=== PATIENT | female | born 1935 | race Caucasian/White ===

== ENCOUNTER 2016-11-15 20:30 | Inpatient (IN) | payer MEDICARE, BC ==
--- NOTE | 2016-11-15 20:40 | ERNOTE ---
Medical Problem HPI - General Time Seen by Provider: 11/15/16 20:32 Source: patient Exam Limitations: no limitations - Immun/Allergies/Home Medications Allergies/Adverse Reactions: Allergies No Known Allergies Allergy (Unverified 11/15/16 20:32) Home Medications: HOME MEDICATIONS Diltiazem HCl [Diltiazem 24Hr Cd] 240 mg PO DAILY 11/15/16 [Last Taken Unknown] Enalapril Maleate [Vasotec] 20 mg PO DAILY 11/15/16 [Last Taken Unknown] Hydrochlorothiazide DAILY 11/15/16 [Last Taken Unknown] - History of Present History Narrative: Patient presents to the emergency room for extreme fatigue and pallor. Patient has a history of hypertension and over the past 2 days she has felt somewhat tired today she was extremely fatigued. She had one episode of melanotic stools last week. At this time she has no melanotic stools. Review of Systems - Review of Systems Constitutional: Present: weakness, fatigue, malaise EYE: Present: no symptoms reported ENT: Present: no symptoms reported Respiratory: Present: no symptoms reported Cardiology: Present: no symptoms reported Gastrointestinal/Abdominal: Present: other - had one episode of melanotic stools approximately 2 days ago however she does not complain of any abdominal pain and rectal bleeding or any other symptoms or melanotic stools at this time Genitourinary: Present: no symptoms reported Musculoskeletal: Present: no symptoms reported Skin: Present: no symptoms reported Physical Exam - Physical Exam General Appearance: Present: lethargic, other - patient appears thin and extremely pale with conjunctival pallor and she appears lethargic and very very tired Head Exam: Present: normal inspection Ears, Nose, Throat: Present: normal ENT inspection, other - pallor of the oral mucosa is noted Neck: Present: normal inspection Respiratory: Present: no respiratory distress, normal breath sounds, no accessory muscle use, chest nontender, lungs clear Cardiovascular/Chest: Present: regular rate, rhythm, no murmur, normal peripheral pulses Gastrointestinal/Abdominal: Present: normal bowel sounds, nontender, nondistended, soft, no organomegaly Back Exam: Present: normal inspection, normal range of motion Extremity Exam: Present: normal inspection Neurological Exam: Present: alert, oriented, normal mood/affect, no motor/ sensory deficits Skin Exam: Present: normal color, warm/dry ED Progress - Results and Orders Patient's Lab Results:: I have reviewed the patient's lab results. - Vital Signs Patient's Vital Signs:: I have reviewed the patient's vital signs. Vital Signs: Vital Signs 11/15/16 20:35 Temperature 36.8 C Pulse Rate 88 Respiratory 18 Rate Blood Pressure 117/46 O2 Sat by Pulse 100 Oximetry - X-Ray X-Ray #1 X-Ray: chest Plan - Plan Plan: This patient has absolutely no pain anywhere and has no symptoms other than extreme fatigue and lethargy. In her history it is important to note that she had 2 days of melanotic stools last week. [place] patient is comfortable completely comfortable at this time. Her hemoglobin is 4.4 and she does need to be admitted to the [facility] floor for transfusion and possible scope. Dr. Quarles will be consult note in regards to this patient's admission. Departure - Departure Clinical Impression: Anemia Qualifiers: Anemia type: unspecified type Qualified Code(s): D64.9 - Anemia, unspecified Disposition: [facility] Condition: Fair
[2016-11-15 21:00] LABS: Mean Cell Volume 97.9 fl (78-100); Mean Corpuscular Hgb Conc 31.7 g/dl (32-36); Mean Platelet Volume 10.8 fl (6.0-9.5); NRBC# 0.1 k/mm3 (0-1); Neutrophil # 9.1 K/mm3 (1.3-6.0); Neutrophil % 76.2 % (42-75.0); Platelet Count 206 K/mm3 (150-450); Red Blood Count 1.42 M/mm3 (4.2-5.4); Red Cell Distribution Width 16.5 % (11.5-14.0)
[2016-11-15 21:01] LABS: Hemoglobin 4.4 gm/dL (12.5-16.0)
[2016-11-15 21:01] LABS: Albumin * 2.2 gm/dl (3.4-5.0); Anion Gap 10.5 mmol/L (6.8-13.8); BUN/Creatinine Ratio 67.2 (9.0-21.6); Bilirubin, Total 0.3 mg/dL (0.0-1.1); Ca. Corrected For Albumin 8.4 mg/dL (8.4-10.2); Calcium * 7.3 mg/dL (7.9-10.9); Carbon Dioxide 24.3 mmol/L (24-32.6); Potassium 3.8 mmol/L (3.4-4.6); Total Protein 4.2 gm/dL (6.2-8.2)
[2016-11-15 21:02] LABS: Hematocrit 13.9 % (37.0-47.0)
[2016-11-15 21:29] LABS: Urine Bilirubin Negative (NEGATIVE); Urine Blood Negative /ul (NEGATIVE); Urine Ketone 15 mg/dL (NEGATIVE); Urine Nitrite Negative (NEGATIVE); Urine Protein Negative (NEGATIVE); Urine Specific Gravity 1.025 SP.GR. (1.005-1.010); Urine Urobilinogen Normal (NORMAL)
[2016-11-15 21:34] LABS: Urine Amorphous Sediment Moderate - 2+ (NONE-FEW); Urine Appearance Clear; Urine Bacteria TRACE; Urine Color Pale Yellow; Urine Hyaline Cast 0-5 /LPF; Urine RBC None Seen /hpf (0-5); Urine WBC None Seen /hpf (0-5)
--- NOTE | 2016-11-15 22:30 | HP ---
Chief Complaint - Chief Complaint Date of Service: 11/15/16 Time of Service: 22:26 Chief Complaint: Feeling weak and tired for the last 1 week. Tarry stools a week ago History of Present Illness: 81-year-old WF with a history of HTN, severe MR [sees Dr. Libby Hinds (cardiology )] who came to the ER for evaluation of weakness and fatigue, which is gradually worsening over the last 1 week. Patient complains of "her legs giving out " while at dinner few days ago, going to bed early due to fatigue/ leg pain and blurred vision on one occasion. She takes occasional aspirin for migraine headaches up to maximum of 6 a day maybe once or twice a month which occur when she is "really stressed ". There is no H/O N,V, weight loss, change in bowel habits. No history of NSAID/EtOH ingestion. H/H was 14/42.3 on 2016. Patient has never had a screening colonoscopy. - Patient's Past Medical History Additional info: PAST MEDICAL HISTORY: Hypertension. 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 Migraines. Osteoarthritis. Patient History - Surgical Procedures: No surgical history Patient History - Other: None LMP (females 10-50): - Family History Mother Family History - Medical: - -DM, HTN Father Family History - Medical: - -MA - Social History Living Situations: spouse Abuse History: No History of abuse Psych History: No pertinent hx Smoking Status: Never smoker Have you smoked in the past 12 months: No Do you dip or chew tobacco: No Patient requests Smoking Cessation Consult: No Initiate information on Smoking Cessation: No Alcohol Use: none Drug Use: none - Immunizations Immunizations Up to Date: Yes Hx Pneumococcal Vaccination: No History of Influenza Vaccine: No Review Of Systems (GEN) - Review of Systems Generalized/Overall Review: Present: Weakness, Fatigue. Absent: Weight loss Respiratory: Absent: Cough, Shortness of Breath Cardiac: Absent: Chest Pain, Edema Abdominal: Absent: Nausea, Vomiting, Abdominal Pain, Constipation Musculoskeletal: Present: Other - pain in tail bone Neurological: Present: Headache - occassionally Allergies/Adverse Reactions: Allergies Allergy/AdvReac Type Severity Reaction Status Date / Time diazepam [From Valium] AdvReac Verified 11/15/16 22:15 Home Medications: HOME MEDICATIONS Diltiazem HCl [Diltiazem 24Hr Cd] 240 mg PO DAILY 11/15/16 [Last Taken Unknown] Enalapril Maleate [Vasotec] 40 mg PO DAILY 11/15/16 [Last Taken Unknown] Hydrochlorothiazide 12.5 mg PO DAILY 11/15/16 [Last Taken Unknown] Exam - Exam Vital Signs: Vital Signs - Last Taken Temp 36.8 C 11/15/16 22:07 Pulse 98 11/15/16 22:07 Resp 16 11/15/16 22:07 BP 102/52 11/15/16 22:07 Pulse Ox 98 11/15/16 22:07 Constitutional: Present: Elderly, Thin and frail - markedly pale in ER ENT Exam: Present: hearing grossly normal, moist mucous membranes Eye Exam: bilateral eye: PERRL, EOMI Neck: Present: normal inspection, trachea midline Respiratory: Present: lungs clear, normal breath sounds. Absent: no accessory muscle use Cardiovascular/Chest: Present: regular rate, rhythm, systolic murmur - II/ heard all at LSB and sternum. Absent: tachycardia Peripheral Pulses: carotid (R): 2+, carotid (L): 2+ Abdomen: Present: Normal bowel sounds, soft, nontender. Absent: CVA tenderness , distended /Rectal: Present: Exam deferred Extremity: Present: normal inspection. Absent: no pedal edema Skin Exam: Present: warm/dry - MARKED PALLOR PRESENT. Neurologic: Present: alert, oriented x 3 Eye contact: Present: cooperative, good eye contact, normal speech Thoughts: Present: normal thought pattern, no apparent hallucination Diagnostic Studies: Laboratory Tests 05/25/16 11/15/16 11:08 20:56 WBC 8.5 12.0 H Hgb 14.0 4.4 L* D Hct 42.3 13.9 L* D Plt Count 280 206 11/15/16 20:52 Plasma Sodium 141 Potassium 3.8 Chloride 109 H Carbon Dioxide 24.3 BUN 39 H D Creatinine 0.58 Est GFR (Non-Af Amer) 106 Random Glucose 171 H Calcium Adj for Albumin 8.4 Total Bilirubin 0.3 AST 13 ALT 16 L Alkaline Phosphatase 59 Total Protein 4.2 L Albumin 2.2 L 11/16/16 08:50 Stool Occult Blood Negative CXR : 11/15/16: 1. No acute cardiopulmonary processes identified. 2. DJD of the spine and shoulders noted. EK11/15/16: NSR w/o acute changes. Assessment/Plan - Narrative Narrative: 1. Anemia: Patient's H&H dropped from 14.0/42.3[05/25/16] to 4.4/13.9[11/15/16]. Patient will be transfused with 3 units PRBC initially and H&H will be checked 2 hours later. Patient will be transfused as deemed necessary. Pantoprazole 40 mg IV 1 given in the ER as she takes aspirin as needed for migraine headaches. 2. GI loss: This could be from upper/lower GI. Patient has a history of aspirin ingestion or it could be from diverticular bleeding/ mass etc. She has not had prior colonoscopy. Will discuss with Dr. Lara. Patient currently on clear liquids for the same. 3. Hypertension: Chronic and stable. On enalapril 40 mg daily, diltiazem 240 mg daily, HCTZ 12.5 mg daily. 4. Other chronic conditions: Migraine headaches and osteoarthritis which are currently stable. 5. DVT prophylaxis: Enoxaparin contraindicated due to anemia; continue JAMES madison. CODE STATUS code: Full code. 6. Patient is at low risk for complications for undergoing EGD and colonoscopy once her hemoglobin is stable.
[2016-11-15] MEDS ORDERED: PANTOPRAZOLE SODIUM 40 MG in NORMAL SALINE 100 ML IV ONE (22:35)
[2016-11-16] MEDS ORDERED: ACETAMINOPHEN 325 MG TABLET PO PRN ×2 (03:33→12:47)
[2016-11-16] MEDS ORDERED: ENALAPRIL MALEATE 5 MG TABLET PO SCH (09:00)
--- NOTE | 2016-11-16 12:46 | PN ---
Subjective - Date and Time Seen Date: 11/16/16 Time: 12:45 Subjective Narrative: feels better, weakness have has improved. Objective - Review of Systems Generalized/Overall Review: Reports: Weakness Cardiac: Denies: Chest Pain, Edema Abdominal: Denies: Nausea, Vomiting - Vitals Vitals: Last Vital Signs Temp 37.1 C 11/16/16 12:35 Pulse 110 H 11/16/16 12:35 Resp 16 11/16/16 12:35 BP 164/81 11/16/16 12:35 Pulse Ox 100 11/16/16 12:35 - Abnormal Lab Findings Abnormal Lab Findings: Laboratory Tests 11/16/16 14:35 WBC 10.6 H Hgb 9.0 L Hct 27.2 L Plt Count 187 - Exam Constitutional: Present: Elderly, Thin and frail - alert and orientedx 3 ENT Exam: Present: hearing grossly normal, moist mucous membranes Neck: Present: normal inspection, trachea midline Respiratory: Present: lungs clear, normal breath sounds Cardiovascular/Chest: Present: regular rate, rhythm, systolic murmur - II/ at LSB and sternum Abdomen: Present: Normal bowel sounds, soft, nontender Skin Exam: Present: warm/dry, pallor Eye contact: Present: cooperative, good eye contact, normal speech Assessment/Plan Plan Narrative: 1. Anemia: Patient's H&H 4.4/13.9[11/15/16] increased to 9.0/27.2 after transfusion. Patient feels better continue to watch. She is heme positive. No history of weight loss. 2. GI loss: This could be from upper/lower GI. Patient has a history of aspirin ingestion or it could be from diverticular bleeding/ mass etc. She has not had prior colonoscopy. Will discussed with Dr. Lara. Discussed with patient she would like to proceed with colonoscopy. 3. Hypertension: Chronic and stable. On enalapril 40 mg daily, diltiazem 240 mg daily, HCTZ 12.5 mg daily. 4. Other chronic conditions: Migraine headaches and osteoarthritis which are currently stable. 5. DVT prophylaxis: Enoxaparin contraindicated due to anemia; continue JAMES madison. CODE STATUS code: Full code. 6. Patient is at low risk for complications for undergoing EGD and colonoscopy once her hemoglobin is stable.
[2016-11-16] MEDS: ENALAPRIL MALEATE 20 MG TABLET PO SCH (13:12)
[2016-11-16 14:53] LABS: Hematocrit 27.2 % (37.0-47.0); Mean Corpuscular Hemoglobin 29.1 pg (27-31); Mean Corpuscular Hgb Conc 33.1 g/dl (32-36); Mean Platelet Volume 10.3 fl (6.0-9.5); NRBC# 0.1 k/mm3 (0-1); Neutrophil # 6.4 K/mm3 (1.3-6.0); Neutrophil % 60.3 % (42-75.0); Platelet Count 187 K/mm3 (150-450); Red Blood Count 3.09 M/mm3 (4.2-5.4); Red Cell Distribution Width 16.3 % (11.5-14.0); White Blood Count 10.6 K/mm3 (4.0-10.5)
[2016-11-16] MEDS ORDERED: SODIUM, POTASSIUM,MAG SULFATES 1 KIT KIT PO ONE (16:32)
--- NOTE | 2016-11-17 05:24 | PN ---
Subjective - Date and Time Seen Date: 11/17/16 Time: 04:53 Subjective Narrative: doing well. states she has been up frequently since starting the surprep yesterday. denies needs. Objective - Review of Systems Generalized/Overall Review: Reports: Fatigue EENTM: Reports: No Symptoms Reported Respiratory: Reports: No Symptoms Reported Cardiac: Reports: No Symptoms Reported Abdominal: Reports: No Symptoms Reported Genitourinary Symptoms: Reports: No Symptoms Reported Musculoskeletal Complaints: Reports: No Symptoms Reported Neurological: Reports: No Symptoms Reported Skin: Reports: No Symptoms Reported Endocrine: Reports: No Symptoms Reported Misc: All systems neg except as marked - Vitals Vitals: Last Vital Signs Temp 37.0 C 11/17/16 02:05 Pulse 99 11/17/16 02:05 Resp 17 11/17/16 02:05 BP 171/80 11/17/16 02:05 Pulse Ox 96 11/17/16 02:05 - Abnormal Lab Findings Abnormal Lab Findings: Abnormal Lab Results 11/16/16 11/16/16 Range/Units 14:35 19:35 WBC 10.6 H (4.0-10.5) K/mm3 RBC 3.09 L (4.2-5.4) M/mm3 Hgb 9.0 L (12.5-16.0) gm/dL Hct 27.2 L (37.0-47.0) % RDW 16.3 H (11.5-14.0) % MPV 10.3 H (6.0-9.5) fl Immature Gran % (Auto) 1.60 H (0.001-0.429) % Immature Gran # (Auto) 0.17 H (0.000-0.0310) K/mm3 Monocytes % 12.4 H (0.0-9) % Neutrophils # 6.4 H (1.3-6.0) K/mm3 Monocytes # 1.3 H (0.0-1.0) k/mm3 Stool Occult Blood Positive H - Exam Constitutional: Present: Alert, Cooperative, No distress, Elderly ENT Exam: Present: hearing grossly normal Neck: Present: full range of motion, supple Respiratory: Present: normal breath sounds, no respiratory distress, no accessory muscle use Cardiovascular/Chest: Present: normal peripheral pulses, regular rate, rhythm, systolic murmur - 2-3/6 Abdomen: Present: soft, nontender, nondistended /Rectal: Present: Exam deferred Extremity: Present: non-tender, no calf tenderness Skin Exam: Present: warm/dry, no cyanosis, pallor Assessment/Plan Plan Narrative: Anemia - Admit Hgb 4.4 - s/p 3 units PRBCs - post transfusion H/H 9.0/27.2 - am labs pending GI Bleed - s/p 3 units PRBCs - am labs pending - scheduled for EGD and colonscopy with Dr. Lara today - appreciate his help. - Start D5LR IVF this am since NPO for procedure - am labs pending: will add K+ if dictated by am labs - ? add on IV protonix BID ? HTN - currently on enalapril 40 mg daily, cardizem 240 mg daily and HCTZ 12.5 mg daily. Code status: Full Code VTE: no lovenox due to GI bleed; taj madison GI proph: ? add protonix IV BID? - Problems/Diagnosis (1) Anemia Problem: Acute Qualifiers: Anemia type: unspecified type Qualified Code(s): D64.9 - Anemia, unspecified (2) GI bleed Problem: Acute Qualifiers: GI bleed type/associated pathology: unspecified gastrointestinal hemorrhage type Qualified Code(s): K92.2 - Gastrointestinal hemorrhage, unspecified (3) HTN (hypertension) Problem: Chronic Qualifiers: Hypertension type: essential hypertension Qualified Code(s): I10 - Essential (primary) hypertension
[2016-11-17 05:46] LABS: Hematocrit 26.4 % (37.0-47.0); Hemoglobin 8.6 gm/dL (12.5-16.0); Mean Cell Volume 88.9 fl (78-100); Mean Corpuscular Hgb Conc 32.6 g/dl (32-36); Mean Platelet Volume 11.1 fl (6.0-9.5); Neutrophil # 4.6 K/mm3 (1.3-6.0); Platelet Count 185 K/mm3 (150-450); Red Blood Count 2.97 M/mm3 (4.2-5.4); White Blood Count 8.7 K/mm3 (4.0-10.5)
[2016-11-17] MEDS ORDERED: DEXTROSE 5%-LACTATED RINGERS 1,000 ML IV PRN (06:00)
[2016-11-17 06:05] LABS: Albumin * 2.5 gm/dl (3.4-5.0); Anion Gap 9.8 mmol/L (6.8-13.8); BUN/Creatinine Ratio 27.5 (9.0-21.6); Bilirubin, Total 0.7 mg/dL (0.0-1.1); Ca. Corrected For Albumin 8.3 mg/dL (8.4-10.2); Calcium * 7.4 mg/dL (7.9-10.9); Carbon Dioxide 26.4 mmol/L (24-32.6); Potassium 3.2 mmol/L (3.4-4.6); Total Protein 4.6 gm/dL (6.2-8.2)
[2016-11-17] MEDS ORDERED: POTASSIUM CHLORIDE 40 MEQ in DEXTROSE 5%-LACTATED RINGERS 1,000 ML IV SCH (07:00)
[2016-11-17] MEDS: ENALAPRIL MALEATE 20 MG TABLET PO SCH (09:25)
[2016-11-17] MEDS ORDERED: POTASSIUM CHLORIDE 20 MEQ TABLET.SA PO PRN (12:00)
[2016-11-17] MEDS ORDERED: POTASSIUM CHLORIDE 40 MEQ in DEXTROSE 5%-LACTATED RINGERS 1,000 ML IV ONE (12:55)
[2016-11-17 14:47] VITALS: BP 139/78
--- NOTE | 2016-11-17 15:13 | DS ---
(1) Anemia Diagnosis(s): due to chaudhry diverticulitis. Problem: Acute Qualifiers: Anemia type: iron deficiency Iron deficiency anemia type: chronic blood loss Qualified Code(s): D50.0 - Iron deficiency anemia secondary to blood loss (chronic) (2) GI bleed Problem: Acute Qualifiers: GI bleed type/associated pathology: diverticulosis Qualified Code(s): K57.91 - Diverticulosis of intestine, part unspecified, without perforation or abscess with bleeding (3) HTN (hypertension) Diagnosis(s): With severe nonvalvular MR. Problem: Chronic Qualifiers: Hypertension type: essential hypertension Qualified Code(s): I10 - Essential (primary) hypertension Description of Stay: DATE OF ADMISSION: 11/15/16. DATE OF DISCHARGE: 11/17/16. DIAGNOSTICS: NONE. DISCHARGE SUMMARY: Kamilah Simpson is a 81-year-old WF with a history of HTN with severe MR [ nonvalvular] and migraines who came into the ER for the evaluation of weakness, fatigue and black tarry stools of one week duration. H&H dropped from 14.0/42.3 [05/25/16] to 4.4/13.9[11/15/2016]. Patient was transfused with 3 units PRBC. H /H was 9.0/27.2 on 11/16/2016. Patient desired to undergo EGD/ colonoscopy. She underwent the above studies on 11/17/2016 which showed the EGD to be normal and having severe pancolonic diverticulosis w/o active bleeding. Her diet was advanced and she was discharged in a stable condition. Her H&H at time of discharge was 8.6/26.4. She was advised to undergo a CT of abdomen/pelvis with contrast as an outpatient in a couple of weeks and follow-up with PCP. Her condition at the time of discharge was stable. More than 35 minutes was spent in discussing plan of care, test results, reconciliation of medications, preparing and dictating discharge summary. Procedures Performed: see notes below - EGD and colonoscopy [11/17/2016] Results and Findings: Laboratory Tests 05/25/16 11/15/16 11/17/16 11:08 20:56 05:34 WBC 8.5 12.0 H 8.7 Hgb 14.0 4.4 L* D 8.6 L Hct 42.3 13.9 L* D 26.4 L Plt Count 280 206 185 11/15/16 11/17/16 20:52 05:34 Plasma Sodium 141 143 H Potassium 3.8 3.2 L Chloride 109 H 110 H Carbon Dioxide 24.3 26.4 BUN 39 H D 14 D Creatinine 0.58 0.51 Est GFR (Non-Af Amer) 106 123 Random Glucose 88 D Calcium Adj for Albumin 8.4 8.3 L Total Bilirubin 0.3 0.7 AST 13 16 ALT 16 L 19 Alkaline Phosphatase 59 67 Total Protein 4.2 L 4.6 L Albumin 2.2 L 2.5 L 11/16/16 19:35 Stool Occult Blood Positive H Discharge Disposition: Home self care Disposition: Home self-care Condition: Undetermined Discharge Diet: Low fat/chol, High Fiber Consultation Done:: Dr. Marco FERRELL Problem Oriented Discharge Instructions to Patient/Family: High-Fiber Diet, Low -Fiber Diet Additional Patient Instructions (free text): High fiber diet. Hand out on high/low fiber diet. follow up with PCP after CT is done. 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 Follow up with Dr. Quarles on 12-24-16 @ 9:30am. Prescriptions (Any new or edited meds): Cholecalciferol (Vitamin D3) [Vitamin D3] 2,000 unit PO DAILY #100 Diltiazem HCl [Diltiazem 24Hr Cd] 240 mg PO DAILY@2100 #.1 cap.er.24h Enalapril Maleate [Vasotec] 40 mg PO DAILY@0800 #.1 tablet Hydrochlorothiazide [Microzide] 12.5 mg PO DAILY@0800 #.1 capsule Complete Home Medications List: Complete Home Medication List: Cholecalciferol (Vitamin D3) [Vitamin D3] 2,000 unit PO DAILY #100 11/17/16 Diltiazem HCl [Diltiazem 24Hr Cd] 240 mg PO DAILY@2100 #.1 cap.er.24h 11/17/16 Enalapril Maleate [Vasotec] 40 mg PO DAILY@0800 #.1 tablet 11/17/16 Hydrochlorothiazide [Microzide] 12.5 mg PO DAILY@0800 #.1 capsule 11/17/16 Amb Orders for Discharge: CT Abdomen/Pelvis W/C * Time Frame: 2 Weeks, Location: Determined By Patient
--- NOTE | 2016-11-17 17:59 | OR ---
Operative Report - Dictated Report Narrative: Operative Report Date of operation: 11/17/2016 Preoperative diagnosis: Anemia Postoperative diagnosis: Normal EGD. Severe diverticulosis. No active bleeding sites identified Operation: EGD with biopsy. Colonoscopy Surgeon: Dr Lara Anesthesia: ALIZE ALVAREZ CRNA Indications for procedure: The patient is an 81-year-old female admitted by Dr. Quarles. The patient presented with fatigue and was found to have profound anemia of 4 g. Her hemoglobin has responded to transfusion. She is brought for upper and lower endoscopy Findings: Normal EGD. Severe chaudhry colonic diverticulosis. No active bleeding site identified Narrative of procedure: The patient was identified preoperatively, and prior to the administration of anesthetic a multidisciplinary timeout was observed EGD: With the patient in the recumbent position, a bite-block was placed, intravenous sedation was administered, and the patient's eyes covered with a towel. The flexible fiberoptic gastroscope was advanced into the posterior pharynx which appeared normal. The supraglottic larynx appeared normal. The cords appeared normal, moved well, and opposed in the midline. The scope was advanced under direct vision into the proximal esophagus which appeared normal. The esophagus appeared freely distensible with normal mucosa. The esophageal mucosa appeared normal down to the gastroesophageal junction which was sharp and noninflamed. The GE junction appeared normally distensible. The scope was advanced into the stomach which was insufflated with air. The stomach was grossly normal in appearance with no ulcers or neoplastic lesions including a retroflexed view of the gastric fundus. The scope was redirected toward the pylorus. The pylorus appeared patent. The gastric anatomy was such that the scope could not be advanced through the pylorus although the duodenal bulb was visualized through the pylorus and appeared grossly normal. [employer] biopsies of gastric mucosa were obtained for CLOtest and pathology. The biopsy sites were seen to be hemostatic. The insufflated air was removed, the scope withdrawn from the patient, and this portion of the procedure terminated. COLONOSCOPY: The patient was then placed in the left lateral position, and the perineum was inspected. There was no evidence of pilonidal disease or skin breakdown. The external appearance of the anus was normal with exception of a pedunculated fibrosed hemorrhoid. Sphincter tone was good. The flexible fiberoptic colonoscope was inserted into the rectum which was insufflated with air. The rectal mucosa and submucosal vascular pattern appeared normal, the prep was seen to be complete. The scope was advanced through the sigmoid colon, which contained innumerable large non-impacted noninflamed diverticular openings. The scope was advanced up the descending colon, and around the splenic flexure where the triangular haustral architecture of the transverse colon was seen. The scope was advanced across the transverse colon, around the hepatic flexure to the cecum, where the confluence of tenia and the ileocecal valve were identified. The mucosa at this level appeared normal. The scope was then slowly withdrawn in a circular fashion so that all aspects of colonic mucosa were inspected. The colon was relatively normal in course and caliber. The haustral architecture appeared well preserved throughout with no evidence of external compression. The mucosa and submucosal vascular pattern appeared normal, specifically there was no gross evidence to suggest colitis or inflammatory bowel disease and no AV malformations were seen. There was severe chaudhry colonic diverticulosis. No polyps were encountered. The scope was gradually withdrawn to the level of the rectum. As much insufflated air as possible was removed. The scope was withdrawn from the patient and the procedure terminated. The patient tolerated the anesthetic and procedure well without complication and was transferred back to her room awake and in stable condition. Reviewed and electronically signed
[2016-11-17] MEDS ORDERED: POTASSIUM CHLORIDE 20 MEQ in DEXTROSE 5%-LACTATED RINGERS 1,000 ML IV SCH (21:00)
== END 2016-11-17 16:50 | disposition home or self-care (01) | DRG 379 ==
LOC: ER 20:30 → MS 21:04 → OBSVTOIN 21:04
PROVIDERS: ADMIT Internal Medicine; ATTEND Internal Medicine
PROC: 30263N1 (ICD-10-PCS; 2016-11-16)
PROC: 0DJD8ZZ Inspection of Lower Intestinal Tract, Via Natural or Artificial Opening Endoscopic (ICD-10-PCS; principal; 2016-11-17 12:45)
PROC: 0DB78ZX Excision of Stomach, Pylorus, Via Natural or Artificial Opening Endoscopic, Diagnostic (ICD-10-PCS; 2016-11-17 12:45)
DX: K57.91 Diverticulosis of intestine, part unspecified, without perforation or abscess with bleeding (principal); D50.0 Iron deficiency anemia secondary to blood loss (chronic); K57.30 Diverticulosis of large intestine without perforation or abscess without bleeding; I10 Essential (primary) hypertension
CPT/HCPCS: 36415; 43239; 45378; 71010; 80053; 81001; 82272; 85025; 85045; 86850; 86900; 87081; 93005; 99283; P9016